=== PATIENT | female | born 1965 | race Caucasian/White ===

== ENCOUNTER 2019-05-15 20:18 | Emergency (ER) | payer OTHER ==
[2019-05-15 20:28] VITALS: BP 117/70; PULSE 69; TEMP 98.1; BMI 23.8
--- NOTE | 2019-05-15 20:52 | PDOC ---
History of Present Illness - General Chief Complaint: Cold Symptoms Stated Complaint: ASTHMA Time Seen by Provider: 05/15/19 20:35 - History of Present Illness Initial Comments: 05/15/19 20:51 53-year-old female finishing a course of Zithromax presents for evaluation of cough which has been slowly improving over the last week. No fevers since yesterday. Past History - Past Medical History Allergies/Adverse Reactions: Allergies Allergy/AdvReac Type Severity Reaction Status Date / Time No Known Allergies Allergy Verified 02/22/16 19:52 Home Medications: Ambulatory Orders Multivit-Min/Iron Fum/Folic AC [Vbqyv-Luaxxit-Nnmlcroi Tablet] 1 each PO DAILY 02/22/16 [place]-3 Fatty Acids [Fish Oil] 300 mg PO DAILY 02/22/16 Aspirin [Aspirin EC] 500 mg PO DAILY PRN #30 tablet. 02/24/16 Magnesium 250 mg PO BID #60 tablet 02/24/16 Asthma: Yes COPD: No - Psycho Social/Smoking Cessation Hx Smoking Status: No Smoking History: Never smoked Number of Cigarettes Smoked Daily: 0 Hx Alcohol Use: No Drug/Substance Use Hx: No Substance Use Type: None Hx Substance Use Treatment: No Review of Systems - Review of Systems Constitutional: No: Fever Respiratory: Yes: Cough *Physical Exam - Vital Signs Last Vital Signs Temp Pulse Resp BP Pulse Ox 98.1 F 69 19 117/70 99 05/15/19 20:23 05/15/19 20:23 05/15/19 20:23 05/15/19 20:23 05/15/19 20:23 - Physical Exam 05/15/19 20:51 GENERAL: The patient is awake, alert, and fully oriented, in no acute distress. HEAD: Normal with no signs of trauma. EYES: sclera anicteric, conjunctiva clear. ENT: Ears normal tympanic membranes normal oropharynx clear uvula midline NECK: Normal range of motion LUNGS: Breath sounds equal, clear to auscultation bilaterally. No wheezes, and no crackles. HEART: S1 and S2 without murmur, rub or gallop. ABDOMEN: Soft, nontender, normoactive bowel sounds. No guarding, no rebound. No masses. EXTREMITIES: Normal range of motion, no edema. No clubbing or cyanosis. No cords, erythema, or tenderness. NEUROLOGICAL: Cranial nerves II through XII grossly intact. Normal speech, normal gait. PSYCH: Normal mood, normal affect. SKIN: Warm, Dry, normal turgor, no rashes or lesions noted. Medical Decision Making - Medical Decision Making 05/15/19 20:51 Patient feeling better after her course of Zithromax just concerned about the cough. Her chest is clear on examination. I will have her follow-up with her primary care physician. Discharge - Discharge Information Problems reviewed: Yes Clinical Impression/Diagnosis: URI with cough and congestion Condition: Stable Disposition: HOME - Admission No - Follow up/Referral Referrals: Elis Mendieta MD [Primary Care Provider] - - Patient Discharge Instructions Additional Instructions: Please finish the Zithromax as directed continue with the Mucinex and follow-up with your primary care physician in 2 to 3 days for further evaluation and treatment options. - Post Discharge Activity Work/Back to School Note: Back to Work
== END 2019-05-15 21:10 | disposition home or self-care (01) ==
LOC: JERFT 20:18 → SUPCPDRO 20:18 → JERFT 21:10
DX: J06.9 Acute upper respiratory infection, unspecified (principal)
CPT/HCPCS: 99281-25

== ENCOUNTER 2023-05-24 10:38 | Observation (INO) | payer OTHER ==
[2023-05-24 10:51] VITALS: BMI 24.0
[2023-05-24 12:31] LABS: EOS % 0.3 % (0-4.5); HEMATOCRIT 26.6 % (32.4-45.2); LYMPH % 20.7 % (8-40); MCH 22.2 pg (25.7-33.7); MEAN CELL VOLUME 73.9 fl (80-96); MEAN PLT VOLUME 8.6 fl (7.5-11.1); MONO % 8.3 % (3.8-10.2); NEUT % 69.7 % (42.8-82.8); PLATELET COUNT 482 10^3/uL (134-434)
[2023-05-24 12:55] LABS: INR 1.05 (0.83-1.09); PROTHROMBIN TIME (PATIENT) 12.2 SEC (9.7-13.0)
[2023-05-24 12:57] LABS: ACTIVATED PTT 27.1 SECONDS (25.2-36.5); CALCIUM 9.2 mg/dL (8.5-10.1)
[2023-05-24 12:58] LABS: ALBUMIN 3.6 g/dl (3.4-5.0)
[2023-05-24 13:01] LABS: CREATININE 0.8 mg/dL (0.55-1.3)
[2023-05-24 13:02] LABS: BILIRUBIN,TOTAL 0.3 mg/dL (0.2-1); TOT PROT 7.4 g/dl (6.4-8.2)
[2023-05-24 13:06] LABS: N-TERMINAL BNP 58.3 pg/ml (5-125)
[2023-05-25 06:24] LABS: BASO % 0.9 % (0-2.0); EOS % 1.1 % (0-4.5); HEMATOCRIT 28.2 % (32.4-45.2); HEMOGLOBIN 8.8 GM/dL (10.7-15.3); LYMPH % 36.1 % (8-40); MCH 23.6 pg (25.7-33.7); MCHC 31.4 g/dl (32.0-36.0); MEAN CELL VOLUME 75.3 fl (80-96); MEAN PLT VOLUME 8.9 fl (7.5-11.1); NEUT % 51.9 % (42.8-82.8); PLATELET COUNT 406 10^3/uL (134-434); RBC 3.74 M/mm3 (3.60-5.2); RDW 18.5 % (11.6-15.6)
[2023-05-25 09:38] VITALS: BP 141/76; PULSE 73; RESP 18; TEMP 98.7
== END 2023-05-25 09:45 | disposition home or self-care (01) ==
LOC: JER 10:38 → JERBED 14:28
PROVIDERS: ADMIT Internal Medicine; ATTEND Internal Medicine
PROC: 30233N1 Transfusion of Nonautologous Red Blood Cells into Peripheral Vein, Percutaneous Approach (ICD-10-PCS; principal; 2023-05-24)
DX: D64.9 Anemia, unspecified (principal); E78.5 Hyperlipidemia, unspecified; R53.1 Weakness
CPT/HCPCS: 0241U-QW; 36415; 36430; 71045-TC-FY; 80053; 83880; 84439; 84443; 84484; 84703; 85025; 85610; 85730; 86850; 86900; 86901; 86922; 93005; 93010; 99285-25; G0378; P9038; P9058

== ENCOUNTER 2023-06-16 04:10 | Day surgery (SDC) | payer OTHER ==
[2023-06-12 12:37] VITALS: BMI 23.3
[2023-06-16] MEDS ORDERED: PROPOFOL 20 ML ONE (08:04)
[2023-06-16] MEDS ORDERED: MIDAZOLAM HCL 2 MG/2 ML SINGLE DOSE VIAL ONE (08:04)
[2023-06-16] MEDS ORDERED: oxyCODONE HCL 5 MG TABLET PO PRN (08:46)
[2023-06-16] MEDS ORDERED: ACETAMINOPHEN 1000 MG/100 ML BAG IVPB PRN (08:46)
[2023-06-16] MEDS ORDERED: ONDANSETRON 4 MG/2 ML VIAL IVPUSH PRN (08:46)
[2023-06-16] MEDS ORDERED: PROMETHAZINE HCL 25 MG/1 ML VIAL IVPB PRN (08:46)
[2023-06-16] MEDS ORDERED: LACTATED RINGERS SOLUTION 1,000 ML IV SCH (09:00)
[2023-06-16] MEDS ORDERED: IBUPROFEN 400 MG TABLET (FP) PO PRN (09:06)
[2023-06-16] MEDS ORDERED: ACETAMINOPHEN 325 MG TABLET (FP) PO PRN (09:06)
[2023-06-16] MEDS ORDERED: DEXAMETHASONE SOD PHOSPHATE 4 MG/1 ML VIAL ONE (09:08)
[2023-06-16] MEDS ORDERED: ONDANSETRON 4 MG/2 ML VIAL ONE (09:08)
[2023-06-16] MEDS ORDERED: LIDOCAINE HCL/PF 2% SDV 5ML VIAL ONE (09:08)
[2023-06-16] MEDS ORDERED: KETOROLAC TROMETHAMINE 30 MG/1 ML VIAL ONE (09:08)
[2023-06-16] MEDS ORDERED: SEVOFLURANE 250 ML BTL ONE (09:39)
[2023-06-16] MEDS ORDERED: ACETAMINOPHEN INJECTION 100 ML IVPB ONE (09:56)
[2023-06-16] MEDS: ACETAMINOPHEN 1000 MG/100 ML BAG IVPB ONE (10:00)
[2023-06-16] MEDS ORDERED: HYDROmorphone HCl 2 MG/ML VIAL ONE (11:04)
[2023-06-16] MEDS: HYDROmorphone HCl 2 MG/ML VIAL IVPUSH ONE (11:07)
[2023-06-16 12:15] VITALS: RESP 20
[2023-06-16] MEDS ORDERED: HYDROmorphone HCl 2 MG/ML VIAL IVPUSH ONE (13:00)
[2023-06-16 14:12] VITALS: BP 130/70; PULSE 60; TEMP 98
== END 2023-06-16 13:45 | disposition home or self-care (01) ==
LOC: JASU-SURG 04:10
PROVIDERS: ATTEND Obstetrics & Gynecology
PROC: 0U5B8ZZ Destruction of Endometrium, Via Natural or Artificial Opening Endoscopic (ICD-10-PCS; principal; 2023-06-16 09:00)
DX: N92.0 Excessive and frequent menstruation with regular cycle (principal)
CPT/HCPCS: 81025; 86850; 86900; 86901; 94760; J0131